=== PATIENT | male | born 1975 | race Caucasian/White ===

== ENCOUNTER 2017-11-06 16:53 | Emergency (ER) | payer OTHER ==
[~2017-11-06] VITALS: Ht 167.6 cm; Wt 84.1 kg
[2017-11-06 17:03] VITALS: BP 17/72
== END 2017-11-06 17:40 ==
LOC: ER 16:54
DX: R09.89 Other specified symptoms and signs involving the circulatory and respiratory systems (principal); M54.2 Cervicalgia; J02.9 Acute pharyngitis, unspecified; F12.10 Cannabis abuse, uncomplicated; Z56.0 Unemployment, unspecified; Z59.0 Homelessness; Z60.2 Problems related to living alone; Y08.89XA Assault by other specified means, initial encounter; Y93.89 Activity, other specified; Y92.89 Other specified places as the place of occurrence of the external cause; Y99.8 Other external cause status
CPT/HCPCS: 99285

== ENCOUNTER 2017-11-12 21:39 | Emergency (ER) | payer OTHER ==
[~2017-11-12] VITALS: Ht 170.2 cm; Wt 84.8 kg
[2017-11-12 21:54] VITALS: BP 132/91
[2017-11-12] MEDS ORDERED: ERYT1OIN6 LEFTEYE (23:29)
[2017-11-12] MEDS ORDERED: IBUP-1984 PO (23:29)
== END 2017-11-13 00:24 | disposition home or self-care (01) ==
LOC: ER 21:39
DX: H10.9 Unspecified conjunctivitis (principal); R07.81 Pleurodynia; F12.10 Cannabis abuse, uncomplicated; Z56.0 Unemployment, unspecified; Z59.0 Homelessness; Z79.899 Other long term (current) drug therapy
CPT/HCPCS: 71100; 99284